=== PATIENT | male | born 1930 | race Caucasian/White ===

== ENCOUNTER 2017-09-09 12:35 | Emergency (ER) | payer SELFPAY ==
[~2017-09-09] VITALS: Ht 170.2 cm; Wt 72.6 kg
--- NOTE | 2017-09-09 12:39 | NUR ---
PATIENT AMBULATED TO BED 3 AT THIS TIME.
[2017-09-09 12:40] VITALS: BP 147/67
--- NOTE | 2017-09-09 12:46 | NUR ---
PT PRESENTS TO ER W/C/O NOSE BLEEDS INTERMITTENTLY OVER THE PAST 6 DAYS, WITH LAST EPISODE EARLY THIS AM. DTR STATES AFTER SPOUSE , PT HAS BEEN DRINKING VERY HEAVILY FOR THE PAST FEW YEARS. HX DM, HTN, RT INGUINAL HERNIA REPAIR; DENIES N/V/D; SKIN IS PINK/WARM/DRY; AAOX4 WITH EVEN AND STEADY GAIT; LUNGS CLEAR BL; HR EVEN AND REGULAR; PT DENIES ANY FEVER, CP, SOB, OR COUGH AT THIS TIME; PATIENT STATES RT GROIN PAIN OF 8/10 AT THIS TIME; VSS; PATIENT POSITIONED FOR COMFORT; HOB ELEVATED; BEDRAILS UP X2; BED DOWN. ER MD MADE AWARE OF PT STATUS.
--- NOTE | 2017-09-09 13:17 | NUR ---
DR GARCIA EVALUATING AAO PT WITH DAUGHTER AT BEDSIDE
[2017-09-09] MEDS ORDERED: PHENYLEPHRINE 0.5% 15 ML BTL NS ONE (13:30)
[2017-09-09 13:58] LABS: BASOPHILS # (AUTO) 0.2 K/uL (0.00-0.22); BASOPHILS % (AUTO) 3.5 % (0.0-2.0); EOSINOPHILS # (AUTO) 0.1 K/uL (0-0.4); EOSINOPHILS % (AUTO) 1.7 % (0.0-4.0); HEMOGLOBIN 14.3 g/dL (12.0-18.0); LYMPHOCYTES # (AUTO) 1.5 K/uL (2.0-11.5); LYMPHOCYTES % (AUTO) 29.3 % (20.5-51.1); MEAN CORPUSCULAR HEMOGLOBIN 35 pg (27-31); MEAN CORPUSCULAR HGB CONC 35 g/dL (33-37); MEAN CORPUSCULAR VOLUME 99 fL (80-94); MONOCYTES # (AUTO) 0.4 K/uL (0.8-1.0); MONOCYTES % (AUTO) 8.6 % (1.7-9.3); NEUTROPHILS # (AUTO) 2.7 K/uL (1.8-7.7); NEUTROPHILS % (AUTO) 56.9 % (42.2-75.2); PLATELET COUNT (AUTO) 113 K/uL (140-450); RED BLOOD CELL COUNT(AUTO) 4.13 MIL/uL (4.20-6.10); RED CELL DISTRIBUTION WIDTH 12.1 % (11.6-13.7); WHITE BLOOD COUNT (AUTO) 4.9 K/uL (4.8-10.8)
[2017-09-09 14:15] LABS: ANION GAP 10.1 (8-16); CARBON DIOXIDE 26.5 mmol/L (21-32); CHLORIDE 106 mmol/L (98-107); CREATININE 0.7 mg/dL (0.7-1.3); GLUCOSE 168 mg/dL (74-106); POTASSIUM 3.6 mmol/L (3.5-5.1); SODIUM SERUM 139 mmol/L (136-145); UREA NITROGEN, BLOOD 18 mg/dL (7-18)
[2017-09-09 14:17] LABS: PROTHROMBIN TIME 10.7 secs (10.8-13.4)
--- NOTE | 2017-09-09 14:19 | NUR ---
Note steffanie in EDM - 09/09/17 at 1450 by ALEXA Patient will be admitted to care of DR BARAJAS. Admited to M/S. Will go to room 110B. Belongings list completed. Report to RADHA CARPIO.
[2017-09-09 14:21] LABS: ALBUMIN 3.4 g/dL (3.4-5.0); ASPARTATE AMINOTRANSFERASE 57 U/L (15-37); LIPASE 135 U/L (73-393); TOTAL BILIRUBIN 1.1 mg/dL (0.0-1.0)
[2017-09-09 14:40] VITALS: BP 109/70
== END 2017-09-09 14:40 | disposition home or self-care (01) ==
LOC: MED 12:35
DX: R04.0 Epistaxis (principal); F10.10 Alcohol abuse, uncomplicated; E11.9 Type 2 diabetes mellitus without complications
CPT/HCPCS: 36415; 80053; 83690; 85025; 85610; 85730; 99284; G0482

== ENCOUNTER 2019-04-14 15:12 | Inpatient (IN) | payer OTHER ==
[~2019-04-14] VITALS: Ht 170.2 cm; Wt 72.8 kg
[2019-04-14 15:18] VITALS: BP 133/59
--- NOTE | 2019-04-14 15:33 | NUR ---
PT AMBULATED TO BED 8
--- NOTE | 2019-04-14 15:34 | NUR ---
HEMA PAUL MADE AWARE OF POSSIBLE STROKE
--- NOTE | 2019-04-14 16:01 | NUR ---
c/o dizziness, generalized weakness and blurred vision. Pt fell twice today. denies hitting head or loc. c/o headache 07/08. facial symmetry intact. Pupils equal and reactive to light bilaterally. No facial droop noted. No smile deficit noted. Speech normal for patient. Patient is alert and oriented to person and time. Bilateral hand maintenance technician equal. Bilateral foot push equal. Pt able to raised bilateral upper and lower extremities without dropped. able to identified NIH list of items without difficulty.
[2019-04-14 16:18] LABS: BASOPHILS % (AUTO) 0.7 % (0.0-2.0); EOSINOPHILS # (AUTO) 0.1 K/uL (0-0.4); EOSINOPHILS % (AUTO) 1.4 % (0.0-4.0); HEMATOCRIT 45.6 % (36-52); HEMOGLOBIN 15.6 g/dL (12.0-18.0); LYMPHOCYTES # (AUTO) 1.4 K/uL (2.0-11.5); LYMPHOCYTES % (AUTO) 29.8 % (20.5-51.1); MEAN CORPUSCULAR HEMOGLOBIN 34 pg (27-31); MEAN CORPUSCULAR HGB CONC 34 g/dL (33-37); MEAN CORPUSCULAR VOLUME 100.7 fL (80-94); MONOCYTES # (AUTO) 0.3 K/uL (0.8-1.0); MONOCYTES % (AUTO) 7.4 % (1.7-9.3); NEUTROPHILS # (AUTO) 2.8 K/uL (1.8-7.7); NEUTROPHILS % (AUTO) 60.7 % (42.2-75.2); PLATELET COUNT (AUTO) 122 K/uL (140-450); RED BLOOD CELL COUNT(AUTO) 4.53 MIL/uL (4.20-6.10); RED CELL DISTRIBUTION WIDTH 12.1 % (11.6-13.7); WHITE BLOOD COUNT (AUTO) 4.6 K/uL (4.8-10.8)
[2019-04-14 16:23] LABS: CARBON DIOXIDE 25.8 mmol/L (21-32); CHLORIDE 103 mmol/L (98-107); CREATININE 0.7 mg/dL (0.7-1.3); GLUCOSE 191 mg/dL (74-106); POTASSIUM 3.8 mmol/L (3.5-5.1); SODIUM SERUM 140 mmol/L (136-145); UREA NITROGEN, BLOOD 15 mg/dL (7-18)
[2019-04-14 16:29] LABS: ALBUMIN 3.4 g/dL (3.4-5.0); ASPARTATE AMINOTRANSFERASE 48 U/L (15-37); PROTHROMBIN TIME 9.5 secs (10.8-13.4); TOTAL BILIRUBIN 0.8 mg/dL (0.0-1.0)
[2019-04-14 16:46] LABS: ANION GAP 14.6 (8-16); CARBON DIOXIDE 24.1 mmol/L (21-32); CHLORIDE 102 mmol/L (98-107); CREATININE 0.7 mg/dL (0.7-1.3); GLUCOSE 192 mg/dL (74-106); POTASSIUM 3.7 mmol/L (3.5-5.1); SODIUM SERUM 137 mmol/L (136-145); UREA NITROGEN, BLOOD 14 mg/dL (7-18)
[2019-04-14 16:53] LABS: ASPARTATE AMINOTRANSFERASE 47 U/L (15-37); TOTAL BILIRUBIN 0.8 mg/dL (0.0-1.0)
[2019-04-14 17:00] LABS: URIC ACID 4.2 mg/dL (2.6-7.2)
[2019-04-14 17:16] LABS: ALBUMIN 3.4 g/dL (3.4-5.0)
[2019-04-14] MEDS ORDERED: ONDANSETRON 4 MG/2 ML VIAL IVP PRN (18:55)
--- NOTE | 2019-04-14 19:22 | NUR ---
REPORT REC'D FROM ESMS RN
--- NOTE | 2019-04-14 19:40 | NUR ---
RECEIVED PATIENT VIA GURNEY FROM ER. PATIENT AMBULATED TO BED, GAIT STEADY. PATIENT HAS SALINE LOCK TO RIGHT AC 22 G PATENT, AND SALINE LOCK TO LEFT AC 20 G PATENT. VITALS STABLE, NO SIGNS OF DISTRESS ON RA. PLACED PATIENT IN YELLOW GOWN, SOCKS AND APPLIED WRIST BAND. SKIN INTACT, LUNGS CLEAR, NO EDEMA. PATIENT IS STABLE AT THIS TIME. BLOOD PRESSURE MILDLY ELEVATED AT 152/70, PATIENT DENIES HISTORY OF HTN. WILL CONTINUE TO MONITOR. Addendum: 04/15/19 at 0049 by Adilene Rutherford RN ORIENTED PATIENT TO ROOM AND UNIT, CALL LIGHT IN REACH. NO C/O PAIN AT THIS TIME.
--- NOTE | 2019-04-14 19:40 | NUR ---
Patient will be admitted to care of DR. DOLL. Admited to [facility]. Will go to rooM 121 A Belongings list completed. Report to GURJIT GARCIA
[2019-04-14 19:48] VITALS: BP 164/73
--- NOTE | 2019-04-14 20:45 | NUR ---
COMPLETED ADMISSION QUESTIONS USING [facility] # [id number], PATIENT DENIES ANY PAST MEDICAL HISTORY.
--- NOTE | 2019-04-14 22:30 | NUR ---
PATIENT IS C/O THROBBING PAIN TO HIS RIGHT HAND. SPOKE TO DR. ARAUJO, NEW ORDER PLACED FOR TYLENOL, SEE E-MAR. WILL MEDICATE PER ORDERS. Addendum: 04/15/19 at 0054 by Adilene Rutherford RN GAVE PATIENT ICE FOR HAND WHILE NEW ORDERS WERE PROCESSING.
--- NOTE | 2019-04-14 22:50 | NUR ---
PATIENT STATES THAT ICE WAS HELPFUL, PAIN IS MINOR 2/10 AT THIS TIME AND DOES NOT WANT TO TAKE TYLENOL. EDUCATED PATIENT THAT TYLENOL IS AVAILABLE AND TO INFORM ME IF PAIN INCREASES. WILL CONTINUE TO ASSESS PAIN
[2019-04-14] MEDS ORDERED: ACETAMINOPHEN 325 MG TAB PO PRN (23:00)
[2019-04-15] VITALS: BP 187/86
--- NOTE | 2019-04-15 00:15 | NUR ---
BLOOD PRESSURE IS ELEVATED. SPOKE TO DR. ARAUJO. ADDITIONAL ORDERS PLACED, SEE E-MAR. WILL ADMINISTER PRN ANTIHYPERTENSIVES ORDERED.
[2019-04-15] MEDS ORDERED: cloNIDine 0.1 MG TAB PO PRN (00:30)
--- NOTE | 2019-04-15 01:02 | NUR ---
ADMINISTERED PRN ANTIHYPERTENSIVE. USING [employer] PRINCIPAL CONSULTING ENGINEER # [id number] EDUCATED PATIENT ON REASON FOR THE MEDICATION WELL THE SIDE EFFECTS. EXPLAINED THAT PATIENT IS NOT TO ATTEMPT TO GE TOUT OF BED WITHOUT CALLING US USING THE RED CALL LIGHT BUTTON. PATIENT VERBALIZED UNDERSTANDING. SAFETY PRECAUTIONS IN PLACE. WILL MONITOR CLOSELY.
--- NOTE | 2019-04-15 02:32 | NUR ---
REASSESSED BLOOD PRESSURE. 138/73, NOW WNL. WILL CONTINUE TO MONITOR. PATIENT IS BRADYCARDIC WITH HR OF 54, BUT DENIES DIZZINESS, HEADACHE, OR FATIGUE AT THIS TIME.
[2019-04-15 04:00] VITALS: BP 109/46
--- NOTE | 2019-04-15 04:15 | NUR ---
BLOOD PRESSURE NOW 109/46, HR 52. PATIENT SLEEPING BUT WAKES EASILY, NO C/O DIZZINESS. WILL CONTINUE TO MONITOR.
--- NOTE | 2019-04-15 06:15 | NUR ---
PATIENT SLEEPING, NO SIGNS OF DISTRESS ON RA. SAFETY PRECAUTIONS IN PLACE.
--- NOTE | 2019-04-15 07:19 | NUR ---
RECEIVED BEDSIDE REPORT FROM RADHA CAGLE. PT STABLE, AWAKE, ALERT AND ORIENTED X4. NO SIGNS OF DISTRESS NOTED. DENIES PAIN OR SOB. NO REDNESS, SWELLING, OR INFLAMMATION NOTED ON IV SITE. CALL SHERIDAN WITHIN REACH. BED IN LOWEST POSITION, BED ALARM ON. SAFETY MEASURES IN PLACE. PLAN OF CARE REVIEWED.
--- NOTE | 2019-04-15 07:20 | NUR ---
ENDORSED PATIENT TO DAY SHIFT RN IN STABLE CONDITION. SAFETY PRECAUTIONS IN PLACE.
[2019-04-15 08:00] VITALS: BP 127/54
--- NOTE | 2019-04-15 08:37 | NUR ---
PATIENT HAS BEEN SCREENED AND CATEGORIZED HIGH NUTRITION RISK. PATIENT WILL BE SEEN WITHIN 1-2 DAYS OF ADMISSION. 04/15/19-04/16/[address]
[2019-04-15] MEDS: ENOXAPARIN 40 MG/0.4 ML SYR SUBQ SCH (09:00)
[2019-04-15 09:17] LABS: BASOPHILS % (AUTO) 0.5 % (0.0-2.0); EOSINOPHILS # (AUTO) 0.1 K/uL (0-0.4); EOSINOPHILS % (AUTO) 3.3 % (0.0-4.0); HEMATOCRIT 39.1 % (36-52); HEMOGLOBIN 13.5 g/dL (12.0-18.0); LYMPHOCYTES # (AUTO) 1.8 K/uL (2.0-11.5); LYMPHOCYTES % (AUTO) 39.2 % (20.5-51.1); MEAN CORPUSCULAR HEMOGLOBIN 35 pg (27-31); MEAN CORPUSCULAR HGB CONC 35 g/dL (33-37); MEAN CORPUSCULAR VOLUME 100.5 fL (80-94); MONOCYTES # (AUTO) 0.4 K/uL (0.8-1.0); MONOCYTES % (AUTO) 8.1 % (1.7-9.3); NEUTROPHILS # (AUTO) 2.2 K/uL (1.8-7.7); NEUTROPHILS % (AUTO) 48.9 % (42.2-75.2); PLATELET COUNT (AUTO) 108 K/uL (140-450); RED BLOOD CELL COUNT(AUTO) 3.89 MIL/uL (4.20-6.10); RED CELL DISTRIBUTION WIDTH 12.5 % (11.6-13.7); WHITE BLOOD COUNT (AUTO) 4.6 K/uL (4.8-10.8)
[2019-04-15] MEDS: ASPIRIN 81 MG TAB.CHEW PO SCH (09:42)
--- NOTE | 2019-04-15 09:44 | NUR ---
ADMINISTERED SCHEDULED ASPIRIN, HELD SCHEDULED LOVENOX FOR PLT 108. PT TOLERATED WELL. NO OTHER NEEDS AT THIS TIME. SPOKE TO PT'S DAUGHTER ANNEMARIE REGARDING PLAN OF CARE.
[2019-04-15 09:55] LABS: ALBUMIN 2.9 g/dL (3.4-5.0); ANION GAP 16.2 (8-16); ASPARTATE AMINOTRANSFERASE 50 U/L (15-37); CARBON DIOXIDE 21.5 mmol/L (21-32); CHLORIDE 105 mmol/L (98-107); CREATININE 0.8 mg/dL (0.7-1.3); GLUCOSE 167 mg/dL (74-106); POTASSIUM 3.7 mmol/L (3.5-5.1); SODIUM SERUM 139 mmol/L (136-145); TOTAL BILIRUBIN 0.8 mg/dL (0.0-1.0); UREA NITROGEN, BLOOD 19 mg/dL (7-18)
[2019-04-15] MEDS ORDERED: MECLIZINE 25 MG TAB PO PRN (11:20)
--- NOTE | 2019-04-15 11:20 | NUR ---
FAMILY AT THE BEDSIDE.
[2019-04-15] MEDS ORDERED: DEXTROSE 50% 50 ML SYR IVP PRN (11:25)
[2019-04-15 12:00] VITALS: BP 101/71
[2019-04-15] MEDS: BLOOD GLUCOSE MONITORING 1 DEV DEV FS SCH ×3 (12:08→21:21)
[2019-04-15 12:21] LABS: APPEARANCE,URINE CLEAR (CLEAR); BILIRUBIN,URINE NEGATIVE (NEGATIVE); BLOOD, URINE NEGATIVE (NEGATIVE); COLOR,URINE YELLOW (YELLOW); LEUKOCYTE ESTERASE ,URINE NEGATIVE (NEGATIVE); NITRITE, URINE NEGATIVE (NEGATIVE); UGLUCOSE TRACE (NEGATIVE)
[2019-04-15] MEDS: INSULIN LISPRO SLIDING SCALE 100 UNITS/ML VIAL SUBQ PRN ×2 (12:21→21:23)
--- NOTE | 2019-04-15 12:21 | NUR ---
ADMINISTERED 2 UNITS HUMALOG FOR BG 182. PT TOLERATED WELL.
[2019-04-15 12:29] LABS: BARBITURATE, URINE NEG. ng/ml (NEG <=200); BENZODIAZEPINE, URINE NEG. ng/mL (NEG <=200); CANNABINOID, URINE NEG. ng/mL (NEG <=50); COCAINE, URINE NEG. ng/mL (NEG <=300); OPIATE, URINE NEG. ng/mL (NEG <=2000); PHENCYCLIDINE SCREEN,URINE NEG. ng/mL (NEG <=25)
[2019-04-15 12:43] LABS: RBC,URINE 0-5 /HPF (0-5); WBC,URINE 0-5 /HPF (0-5)
--- NOTE | 2019-04-15 13:39 | NUR ---
04/15/19 RD INITIAL ASSESSMENT COMPLETED PLEASE REFER TO NUTRITION ASSESSMENT UNDER CARE ACTIVITY FOR ESTIMATED NUTRITIONAL NEEDS. RD RECOMMENDATIONS: 1. CONTINUE REGULAR DIET TOLERATED. 2. CONSIDER CHANGING PT�S DIET TO CCHO 60 GM WHEN PT�S PO INTAKE IMPROVES. 3. CONSIDER ADDING GLUCERNA SHAKE BID TO OPTIMIZE NUTRITION INTAKE. 4. ENCOURAGE PO INTAKE FOR ADEQUATE NUTRITION INTAKE. 5. RD WILL F/U 2-3 DAYS; MODERATE RISK. SYLVIA LOW, RD
--- NOTE | 2019-04-15 14:10 | NUR ---
PT STABLE, WATCHING T.V. NO NEEDS AT THIS MOMENT.
[2019-04-15 16:00] VITALS: BP 136/64
--- NOTE | 2019-04-15 16:30 | NUR ---
VITAL SIGNS TAKEN, PT STABLE. BLOOD GLUCOSE CHECKED, 111, NO COVERAGE NEEDED.
--- NOTE | 2019-04-15 16:40 | NUR ---
D/C IV ON LEFT AC 20G DUE TO SITE IS PUFFY, CATHETER TIP INTACT, BLEEDING CONTROLLED. PT TOLERATED WELL.
--- NOTE | 2019-04-15 17:28 | NUR ---
SPOKE WITH DAUGHTER ANNEMARIE AT THE BEDSIDE REGARDING PT'S PLAN OF CARE.
--- NOTE | 2019-04-15 19:20 | NUR ---
ENDORSED PT TO RN SALTY FOR CONTINUITY OF CARE. PT STABLE.
--- NOTE | 2019-04-15 19:25 | NUR ---
RECEIVED PT FROM CHERI GARCIA REPORT GIVEN AT BED SIDE, PT IS KYRGYZ SPEAKER AAOX4 VERBALIZED NEEDED, AMBULATORY DENIES ANY DIZZINESS AT THIS TIME ON TELEMETRY SR, INITIAL ASSESSMENT DONE
[2019-04-15 20:00] VITALS: BP 128/56
--- NOTE | 2019-04-15 21:30 | NUR ---
BLOOD SUGAR TEST 207 COVERAGE WITH 4 UNITS SUBQ HUMALOG FOLLOWING PROTOCOL AND HS SNACK IS GIVEN
--- NOTE | 2019-04-15 23:12 | NUR ---
VOIDING WELL DENIES ANY PAIN OR DISCOMFORT ON TELMETRY SR GETTING SLEEP
[2019-04-16] VITALS: BP 137/64
--- NOTE | 2019-04-16 01:13 | NUR ---
PT RESTING ON BED DENIES ANY DIZZINESS OR DISTRESS
--- NOTE | 2019-04-16 03:00 | NUR ---
SPONGE BATH GIVEN LINEN CHANGED NOT DISTRESS NOTED ON TELEMETRY SB
[2019-04-16 04:00] VITALS: BP 139/60
--- NOTE | 2019-04-16 06:00 | NUR ---
BLOOD SUGAR TEST 166 COVERAGE WITH HUMALOG 2 UNITS SUBQ ON LEFT ABD FOLLOWING PROTOCOL, PT DENIES ANY DIZZINESS, PT ON TELEMETRY SB
[2019-04-16] MEDS: BLOOD GLUCOSE MONITORING 1 DEV DEV FS SCH ×4 (06:03→20:25)
[2019-04-16] MEDS: INSULIN LISPRO SLIDING SCALE 100 UNITS/ML VIAL SUBQ PRN ×3 (06:04→20:24)
--- NOTE | 2019-04-16 06:15 | NUR ---
PT WILL BE ENDORSED TO DAY SHIFT NURSE FOR CONTINUITY OF CARE
--- NOTE | 2019-04-16 07:15 | NUR ---
RECEIVED REPORT FROM STEFFEN HOUSE SUPERVISOR NURSE SALTY FOR CONTINUITY OF CARE. PT IN STABLE CONDITION. RESPIRATIONS EVEN AND UNLABORED. IV INTACT AND PATENT. SAFETY MEASURES IN PLACE. BED IN LOW POSITION. BED ALARM ON. CALL LIGHT AT BEDSIDE. WILL CONTINUE TO MONITOR.
[2019-04-16 08:00] VITALS: BP 110/62
--- NOTE | 2019-04-16 08:50 | NUR ---
YAEL CARY DR., M.D. 4MG MORPHINE Q4 PRN. PT IN STABLE CONDITION.
[2019-04-16] MEDS ORDERED: MORPHINE SULFATE 4 MG/ML SYR IVP PRN (08:55)
[2019-04-16] MEDS: ENOXAPARIN 40 MG/0.4 ML SYR SUBQ SCH (09:00)
[2019-04-16] MEDS: ASPIRIN 81 MG TAB.CHEW PO SCH (09:22)
--- NOTE | 2019-04-16 09:28 | NUR ---
NON ADMINISTERED LOVENOX PLATELETS 108. PT AMBULATES WITH ASSIST. PT IN STABLE CONDITION.
--- NOTE | 2019-04-16 11:32 | NUR ---
PT LYING IN BED SLEEPING AT THIS TIME. RESPIRATIONS EVEN AND UNLABORED. WILL CONTINUE TO MONITOR. BED IN LOW POSITION. CALL LIGHT AT BEDSIDE. BED ALARM ON.
[2019-04-16 12:00] VITALS: BP 149/63
--- NOTE | 2019-04-16 13:45 | NUR ---
ASSISTED PT TO RESTROOM. PT ABLE TO AMBULATE WITH STAND BY ASSIST. WILL CONTINUE TO MONITOR. BED IN LOW POSITION. CALL LIGHT AT BEDSIDE. BED ALARM ON.
--- NOTE | 2019-04-16 15:11 | NUR ---
PT LYING IN BED FAMILY AT BEDSIDE. PT IN STABLE CONDITION AT THIS TIME. RESPIRATIONS EVEN AND UNLABORED. WILL CONTINUE TO MONITOR. BED IN LOW POSITION. CALL LIGHT AT BEDSIDE. BED ALARM ON.
[2019-04-16 16:00] VITALS: BP 103/58
--- NOTE | 2019-04-16 19:29 | NUR ---
GAVE REPORT TO SERVICE AND REPAIR SUPERVISOR NURSE SUSAN FOR CONTINUITY OF CARE. PT IN STABLE CONDITION.
--- NOTE | 2019-04-16 19:30 | NUR ---
RECEIVED PT ON BED, AAOX4, ABLE TO MAKE NEEDS KNOWN, VITAL SIGNS STABLE, DENIES ANY PAIN AND DIZZINESS, PLAN OF CARE DISCUSSED, SAFETY MEASURES IN PLACE WITH SIDE RAILS UP AND BED ALARM ON, CALL LIGHT WITHIN REACH.
[2019-04-16 20:00] VITALS: BP 124/61
--- NOTE | 2019-04-16 20:30 | NUR ---
BLOOD SUGAR CHECKED WITH 193 RESULT, COVERAGE GIVEN, SNACK PROVIDED, ALL NEEDS ATTENDED.
--- NOTE | 2019-04-16 22:15 | NUR ---
PT TRIGGERED BED ALARM, PT STOOD UP TO USE URINAL, VOIDED FREELY, ASSISTED BACK TO BED, INSTRUCTED TO USE CALL LIGHT FOR ASSIST, PT NODDED, BED ALARM ON, MONITORED CLOSELY.
[2019-04-17] VITALS: BP 154/57
--- NOTE | 2019-04-17 | NUR ---
PT STILL AWAKE USING HIS CELLPHONE, VITAL SIGNS STABLE, DENIES PAIN, SIDE RAILS UP AND BED ALARM ON, CONTINUE TO MONITOR CLOSELY.
--- NOTE | 2019-04-17 03:38 | NUR ---
PT SLEEPING, EASILY AROUSABLE, VITAL SIGNS TAKEN, BP SLIGHTLY ELEVATED, ASYMPTOMATIC, DENIES ANY PAIN, NO SOB NOTED, MONITORED CLOSELY.
[2019-04-17 04:00] VITALS: BP 153/64
--- NOTE | 2019-04-17 06:00 | NUR ---
AM LABS DRAWN, BLOOD SUGAR CHECKED WITH 149 RESULT, NO COVERAGE NEEDED, NO DISTRESS NOTED, MONITORED CLOSELY.
[2019-04-17] MEDS: BLOOD GLUCOSE MONITORING 1 DEV DEV FS SCH ×4 (06:55→20:58)
--- NOTE | 2019-04-17 07:17 | NUR ---
PT AWAKE SLEEPING, NO DISTRESS NOTED, BEDSIDE REPORT GIVEN TO RADHA TA FOR CONTINUITY OF CARE.
--- NOTE | 2019-04-17 07:18 | NUR ---
RECEIVED REPORT FROM SHORTHAND TEACHER NURSE SUSAN FOR CONTINUITY OF CARE. PT IN STABLE CONDITION. RESPIRATIONS EVEN AND UNLABORED. IV INTACT AND PATENT. SAFETY MEASURES IN PLACE. BED IN LOW POSITION. BED ALARM ON. CALL LIGHT AT BEDSIDE. WILL CONTINUE TO MONITOR.
[2019-04-17 07:33] LABS: BASOPHILS % (AUTO) 0.7 % (0.0-2.0); EOSINOPHILS # (AUTO) 0.1 K/uL (0-0.4); EOSINOPHILS % (AUTO) 2.7 % (0.0-4.0); HEMATOCRIT 41.2 % (36-52); HEMOGLOBIN 14.2 g/dL (12.0-18.0); LYMPHOCYTES # (AUTO) 1.6 K/uL (2.0-11.5); LYMPHOCYTES % (AUTO) 31.6 % (20.5-51.1); MEAN CORPUSCULAR HEMOGLOBIN 35 pg (27-31); MEAN CORPUSCULAR HGB CONC 34 g/dL (33-37); MONOCYTES # (AUTO) 0.4 K/uL (0.8-1.0); MONOCYTES % (AUTO) 8.4 % (1.7-9.3); NEUTROPHILS # (AUTO) 2.9 K/uL (1.8-7.7); NEUTROPHILS % (AUTO) 56.6 % (42.2-75.2); PLATELET COUNT (AUTO) 113 K/uL (140-450); RED BLOOD CELL COUNT(AUTO) 4.08 MIL/uL (4.20-6.10); RED CELL DISTRIBUTION WIDTH 12.3 % (11.6-13.7); WHITE BLOOD COUNT (AUTO) 5.1 K/uL (4.8-10.8)
[2019-04-17 07:37] LABS: ANION GAP 12.1 (8-16); ASPARTATE AMINOTRANSFERASE 54 U/L (15-37); CARBON DIOXIDE 26.6 mmol/L (21-32); CHLORIDE 105 mmol/L (98-107); CREATININE 0.8 mg/dL (0.7-1.3); GLUCOSE 145 mg/dL (74-106); POTASSIUM 3.7 mmol/L (3.5-5.1); SODIUM SERUM 140 mmol/L (136-145); UREA NITROGEN, BLOOD 15 mg/dL (7-18)
[2019-04-17 08:00] VITALS: BP 129/60
[2019-04-17] MEDS: ASPIRIN 81 MG TAB.CHEW PO SCH (09:09)
[2019-04-17] MEDS: ENOXAPARIN 40 MG/0.4 ML SYR SUBQ SCH (09:11)
[2019-04-17 12:00] VITALS: BP 131/64
[2019-04-17 16:00] VITALS: BP 134/64
--- NOTE | 2019-04-17 16:34 | NUR ---
DC PLANNING: CM CONTACTED [facility] [employer] @ REGARDING DC ORDER FOR PATIENT TO SNF FOR SHORT TERM PT. PER [employer] POL[employer] AT [facility], [facility] IS RESPONSIBLE FOR THE SHORT TERM PT AT SNF. CM CONTACTED [facility] @ . CM ASSIGNED IS DEBBIE TORRES. EMAIL ADDRESS IS [email or web address]. DISCHARGE NURSE IS ROSELINE @ [facility] . PER ROSELINE, SHE WILL BE FAXING CONTRACTED SNF LIST. CM FAXED DC ORDER, AND PT EVAL NOTES. CM TO CONTACT ROSELINE ONCE SNF IS ACCEPTING. CM TO FOLLOW UP TOMORROW.
--- NOTE | 2019-04-17 17:32 | NUR ---
PT LYING IN BED WATCHING TV. PT IN STABLE CONDITION. BED IN LOW POSITION. CALL LIGHT AT BEDSIDE. WILL CONTINUE TO MONITOR.
--- NOTE | 2019-04-17 18:10 | NUR ---
INFORMED PT SNF PLACEMENT POSSIBLE TOMORROW 04/18/2019 USING [facility] #[id number]. PT VERBALIZED UNDERSTANDING.
--- NOTE | 2019-04-17 19:35 | NUR ---
GAVE REPORT TO NATUROPATH NURSE GURJIT FOR CONTINUITY OF CARE. PT IN STABLE CONDITION.
--- NOTE | 2019-04-17 19:36 | NUR ---
RECEIVED REPORT FROM DAY SHIFT RNKEYON. PATIENT IN STABLE CONDITION, WITH NO SIGNS OF DISTRESS ON RA, AND SAFETY PRECAUTIONS IN PLACE.
[2019-04-17 20:00] VITALS: BP 136/75
[2019-04-17] MEDS: INSULIN LISPRO SLIDING SCALE 100 UNITS/ML VIAL SUBQ PRN (21:09)
--- NOTE | 2019-04-17 21:12 | NUR ---
ADMINISTERED SCHEDULED MEDICATIONS, NO SIGNS OF DISTRESS ON RA. PATIENT WATCHING TV. SAFETY PRECAUTIONS IN PLACE.
--- NOTE | 2019-04-17 23:30 | NUR ---
PATIENT SLEEPING, VITALS STABLE, WOKE PATIENT. PATIENT STILL COMPLAINING OF PAIN AT SALINE LOCK LOCATION. IV IS 18G SALINE LOCK AND IS FLUSHING WELL BUT THERE IS BRUISING AROUND THE SITE. PATIENT AGREES TO HAVE ANOTHER IV PLACED IN A DIFFERENT LOCATION. WILL INSERT NEW IV ELSEWHERE.
[2019-04-18] VITALS: BP 147/56
--- NOTE | 2019-04-18 01:15 | NUR ---
INSERTED 22G IV CATHETER IN LEFT FORE ARM. ONE ATTEMPT, FLUSHING WELL, PATIENT HAS NO C/O PAIN. DISCONTINUED RIGHT ANTECUBITAL, 18 G CATHETER, TIP INTACT.
--- NOTE | 2019-04-18 03:35 | NUR ---
PATIENT SLEEPING, NO SIGNS OF DISTRESS ON RA. SAFETY PRECAUTIONS IN PLACE. CALL LIGHT IN REACH.
[2019-04-18 04:00] VITALS: BP 136/55
--- NOTE | 2019-04-18 05:30 | NUR ---
PATIENT SLEEPING, NO SIGNS OF DISTRESS ON RA, SAFETY PRECAUTIONS IN PLACE.
--- NOTE | 2019-04-18 07:20 | NUR ---
GAVE BEDSIDE REPORT TO DAY SHIFT RN. PATIENT IN STABLE CONDITION.
--- NOTE | 2019-04-18 07:25 | NUR ---
RECEIVED PT FROM JOURNEYMAN WELDER NURSE FROM JOURNEYMAN WELDER NURSE, PT IS ASLEEP LYING ON THE BED RESPIRATION EVEN, WITH SIDE RAILS ARE UP AND CALL LIGHT WITHIN REACH,FALL PRECAUTION ENFORCED, BED ALARM ACTIVATED, PT HAS AN IV LINE ON THE LEFT FA G.22 ON SALINE LOCK. NO SIGN OF DISTRESS NOTED AND WILL MONITOR PT.
[2019-04-18] MEDS: BLOOD GLUCOSE MONITORING 1 DEV DEV FS SCH ×3 (07:30→16:53)
[2019-04-18 08:00] VITALS: BP 147/55
[2019-04-18] MEDS: ENOXAPARIN 40 MG/0.4 ML SYR SUBQ SCH (08:36)
[2019-04-18] MEDS: ASPIRIN 81 MG TAB.CHEW PO SCH (08:41)
[2019-04-18] MEDS: INSULIN LISPRO SLIDING SCALE 100 UNITS/ML VIAL SUBQ PRN ×2 (08:42→12:59)
--- NOTE | 2019-04-18 08:44 | NUR ---
PT IS A BURKINAN SPEAKING, BLOOD GLUCOSE CHECK DONE AND RESULT IS 159 AND INSULIN 2 UNITS WAS GIVEN ON THE LEFT UA, ORAL MEDICATIONS GIVEN AND PT TOLERATED IT.
--- NOTE | 2019-04-18 10:43 | NUR ---
PT IS BEING ASSESSED BY THE PHYSICAL THERA[IST NOW, PT AMBULATING IN THE HALLWAY.
[2019-04-18 12:00] VITALS: BP 143/96
--- NOTE | 2019-04-18 13:45 | NUR ---
CASE MANAGEMENT: SPOKE WITH STELLA ( GENERAL COUNSELOR @ [facility]) @ . PATIENT IS ACCEPTED AND ROOM NUMBER IS [id number]. TRANSPORTATION HAS BEEN SETUP WITH [facility] @ AND SPOKE WITH FATMATA. IT INFRASTRUCTURE ARCHITECT TIME IS AT 6PM. TRANSPORTATION AUTHORIZATION HAS BEEN OBTAINED FROM [facility] @ [facility] @ P . TRANSPORTATION AUTH IS [id number]. CM CONTACTED PATIENT'S DAUGHTER ( ANNEMARIE ONEILL) @ [phone] AND INFORMED HER THAT PATIENT IS ACCEPTED AT [facility]. PATIENT'S DAUGHTER HAD AGREED TO THE DISCHARGE. CM PROVIDED PT's DAUGHTER INFORMATION ON SNF AND TRANSPORTATION.
--- NOTE | 2019-04-18 13:53 | NUR ---
ALONDRA LEWIS CALLED AND INFORMED THAT PT WILL BE GOING TO [facility] AT RM 7-C FOR PT AND TRANSPORTAION WILL BE [facility] AND SHIPPING ROOM HELPER TIME WILL BE AT 1800.
[2019-04-18 16:00] VITALS: BP 153/71
--- NOTE | 2019-04-18 16:00 | NUR ---
PT WAS OBSERVED TO BE AMBULATING IN THE HALLWAY, GAIT IS STEADY. WILL MONITOR PT.
--- NOTE | 2019-04-18 16:53 | NUR ---
PT IS AWAKE AND SEATED ON THE BED, VITAL SIGNS TAKEN AND BP IS 153/71, PULSE IS 57, O2 SATURATION IS 97%, RESPIRATION IS 18/MIN, TEMPERATURE IS 97.9, BLOOD GLUCOSE CHECK DONE AND RESULT IS 103, NO INSULIN COVERAGE NEEDED. NO SIGN OF DISTRESS NOTED. WILL MONITOR PT.
--- NOTE | 2019-04-18 17:45 | NUR ---
PT WAS INFORMED INTERPRETED BY [facility], #[id number], THAT HE WILL BE TRANSFERRED TO [facility] FOR PT, PT VERBALIZED UNDERSTANDING.
--- NOTE | 2019-04-18 19:25 | NUR ---
ENDORSED PT TO CURB ATTENDANT NURSEBRADY FOR THE REST OF THE DISCHARGE PROCESS, TRANSPORTATION IS RUNNING LATE. DISCHARGED INSTRUCTIONS WERE TOLD TO PT. PT IS STABLE AT THIS TIME.
--- NOTE | 2019-04-18 19:26 | NUR ---
RECEIVED PT FROM AM SHIFT NURSE AT BEDSIDE, PT IS SITTING ON BED, AWAKE ALERT ORIENTED X 4. PT AMBULATORY RESPIRATION EVEN, WITH SIDE RAILS ARE UP AND CALL LIGHT WITHIN REACH,FALL PRECAUTION ENFORCED, BED ALARM ACTIVATED, PT HAS AN IV LINE ON THE LEFT FA G.22 ON SALINE LOCK. NO SIGN OF DISTRESS NOTED AND WILL MONITOR PT.
[2019-04-18 19:37] VITALS: BP 124/66
--- NOTE | 2019-04-18 19:37 | NUR ---
PT PICKED UP BY [facility], PT AMBULATORY W/ STANDBY ASSIST, STEADY GAIT WALKED TO [facility].PT TO ROSY PADGETT BP 124/66, 68, T= 97.5, . PT STABLE AT THIS TIME. WITH BLOOD GLUCOSE OF 188 MG/DL, INSULIN 2 UNITS GIVEN Addendum: 04/18/19 at 6 by Shameka Carrillo RN NO INSULIN WAS GIVEN NOT DUE YET. INFORMED ROSY PADGETT NURSE AND [employer] TECH.
== END 2019-04-18 19:37 | DRG 111 ==
LOC: MED 15:12 → MTU 18:58
PROVIDERS: ADMIT Internal Medicine Pulmonary Disease; ATTEND Internal Medicine Pulmonary Disease
DX: H81.10 Benign paroxysmal vertigo, unspecified ear (principal); E11.9 Type 2 diabetes mellitus without complications; R26.81 Unsteadiness on feet
CPT/HCPCS: 36415; 70450; 71045; 80053; 80305; 81001; 82550; 82948; 83735; 84484; 84550; 85025; 85610; 85730; 87081; 93880; 97110; 97116; 97161-GP; 97530; 99285; G0482; J1650; J2270; Q0092